=== PATIENT | male | born 1990 | race African-American/Black ===

== ENCOUNTER 2016-05-04 14:30 | Emergency (ER) | payer OTHER ==
[2016-05-04 14:38] VITALS: BP 117/73; PULSE 100; TEMP 98.6; BMI 28.3
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
== END 2016-05-04 15:39 | disposition home or self-care (01) ==
LOC: FER 14:30
DX: J31.0 Chronic rhinitis (principal); I10 Essential (primary) hypertension; F17.210 Nicotine dependence, cigarettes, uncomplicated
CPT/HCPCS: 87070; 87430; 99282-25

== ENCOUNTER 2017-05-08 16:27 | Emergency (ER) | payer OTHER ==
[2017-05-08 17:13] VITALS: BMI 29.5
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
[2017-05-08 18:02] VITALS: BP 142/89; PULSE 98; TEMP 98.2
== END 2017-05-08 18:07 | disposition home or self-care (01) ==
LOC: JER 16:27
DX: F16.10 Hallucinogen abuse, uncomplicated (principal); F17.210 Nicotine dependence, cigarettes, uncomplicated; I10 Essential (primary) hypertension
CPT/HCPCS: 99281-25

== ENCOUNTER 2017-07-21 16:47 | Inpatient (IN) | payer OTHER ==
[2017-07-21 19:54] VITALS: BMI 25.0
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
[2017-07-21] MEDS ORDERED: MAG HYDROX/AL HYDROX/SIMETH 30 ML UNIT-DOSE CUP PO PRN (21:03)
[2017-07-21] MEDS ORDERED: MAGNESIUM CITRATE 300 ML BOTTLE PO PRN (21:03)
[2017-07-21] MEDS ORDERED: P-EPHED 60MG/TRIPROLIDI 2.5MG TABLET PO PRN (21:03)
[2017-07-21] MEDS ORDERED: NICOTINE POLACRILEX 2 MG GUM BUC PRN (21:03)
[2017-07-21] MEDS ORDERED: METHADONE HCL 10 MG TABLET (FOR DETOX USE ONLY) PO ONE ×2 (21:03→23:00)
[2017-07-21] MEDS ORDERED: MAGNESIUM HYDROX 2400MG/30ML ORAL SUSPENSION 30 ML CUP PO PRN (21:03)
[2017-07-21] MEDS ORDERED: MENTHOL/PHENOL 1 EACH UD MM PRN (21:03)
[2017-07-21] MEDS ORDERED: ACETAMINOPHEN 325 MG TABLET (FP) PO PRN (21:15)
[2017-07-21] MEDS ORDERED: guaiFENesin/D-METHORPHAN HB 10 ML UNIT-DOSE CUPS PO PRN (21:16)
[2017-07-21] MEDS ORDERED: chlordiazePOXIDE HCL 25 MG CAPSULE PO PRN (21:16)
[2017-07-21] MEDS ORDERED: IBUPROFEN 400 MG TABLET (FP) PO PRN (21:16)
[2017-07-21] MEDS ORDERED: LOPERAMIDE HCL 2 MG CAPSULE PO PRN (21:16)
[2017-07-21] MEDS ORDERED: MELATONIN 5 MG TABLETS PO PRN (22:00)
[2017-07-21] MEDS: chlordiazePOXIDE HCL 25 MG CAPSULE PO SCH (22:46)
[2017-07-21] MEDS: THIAMINE HCL 100 MG TABLET (FP) PO SCH (22:47)
[2017-07-22] MEDS: chlordiazePOXIDE HCL 25 MG CAPSULE PO SCH ×4 (05:04→22:12)
[2017-07-22] MEDS ORDERED: diphenhydrAMINE HCL 25 MG CAPSULE (FP) PO ONE (05:21)
[2017-07-22 08:07] LABS: URINE APPEARANCE CLEAR; URINE BILIRUBIN NEGATIVE (<2.0 mg/dL); URINE COLOR YELLOW; URINE GLUCOSE (UA) NEGATIVE (NEGATIVE); URINE KETONE TRACE (NEGATIVE); URINE LEUK ESTERASE NEGATIVE (NEGATIVE); URINE NITRITE NEGATIVE (NEGATIVE); URINE PROTEIN NEGATIVE (NEGATIVE)
[2017-07-22] MEDS ORDERED: METHADONE HCL 10 MG TABLET (FOR DETOX USE ONLY) PO SCH (10:00)
[2017-07-22] MEDS: PRENATAL VITAMINS W/ FOLIC ACID TABLET (FP) PO SCH (10:13)
[2017-07-22] MEDS: NICOTINE 14 MG/24 HOURS TOPICAL PATCH TD SCH (10:13)
[2017-07-22 10:52] LABS: CHLORIDE 107 mmol/L (98-107); POTASSIUM 4.1 mmol/L (3.5-5.1); SODIUM 141 mmol/L (136-145)
[2017-07-22 11:01] LABS: HEMOGLOBIN 13.8 GM/dL (11.7-16.9); MCH 30.4 pg (25.7-33.7); MCHC 32.9 g/dl (32.0-35.9); MEAN CELL VOLUME 92.4 fl (80-96); MEAN PLT VOLUME 11.3 fl (7.5-11.1); PLATELET COUNT 115 K/MM3 (134-434); RBC 4.55 M/mm3 (4.00-5.60); RDW 15.9 % (11.9-15.9); WHITE BLOOD COUNT 6.6 K/mm3 (4.0-10.0)
--- NOTE | 2017-07-22 11:02 | PN ---
S CIWA - CIWA Score Nausea/Vomitin Muscle Tremors: 3 Anxiety: 3 Agitation: 3 Paroxysmal Sweats: 3 Orientation: 0-Oriented Tacttile Disturbances: 0-None Auditory Disturbances: 0-None Visual Disturbances: 0-None Headache: 0-None Present CIWA-Ar Total Score: 15 BHS COWS - Scale Resting Pulse: 0= ID 80 or Below Sweatin= Chills/Flushing Restless Observation: 1= Difficult to Sit Still Pupil Size: 0= Normal to Room Light Bone or Joint Aches: 1= Mild Discomfort Runny Nose/ Eye Tearin= Nasal Congestion GI Upset > 30mins: 1= Stomach Cramp Tremor Observation of Outstretched Hands: 2= Slight Tremor Visible Yawning Observation: 1= 1-2x During Session Anxiety or Irritability: 1=Feels Anxious/Irritable Goose Flesh Skin: 0=Smooth Skin COWS Score: 9 S Progress Note (SOAP) Subjective: Shakes Sweats Sleepless Generalized Itchiness Objective: 07/22/17 11:10 A & O x3 noted scratching - no hives, redness No resp distress Vital Signs Temperature 96.2 F L 07/22/17 09:17 Pulse Rate 55 L 07/22/17 09:17 Respiratory Rate 20 07/22/17 09:17 Blood Pressure 114/70 07/22/17 09:17 O2 Sat by Pulse Oximetry (%) Laboratory Last Values Sodium 141 mmol/L (136-145) 07/22/17 07:00 Potassium 4.1 mmol/L (3.5-5.1) 07/22/17 07:00 Chloride 107 mmol/L (98-107) 07/22/17 07:00 Urine Color Yellow 07/22/17 06:30 Urine Appearance Clear 07/22/17 06:30 Urine pH 5.0 (5.0-8.0) 07/22/17 06:30 Ur Specific [place] 1.020 (1.001-1.035) 07/22/17 06:30 Urine Protein Negative (NEGATIVE) 07/22/17 06:30 Urine Glucose (UA) Negative (NEGATIVE) 07/22/17 06:30 Urine Ketones Trace (NEGATIVE) H 07/22/17 06:30 Urine Blood Negative (NEGATIVE) 07/22/17 06:30 Urine Nitrite Negative (NEGATIVE) 07/22/17 06:30 Urine Bilirubin Negative (<2.0 mg/dL) 07/22/17 06:30 Urine Urobilinogen 2.0 mg/dL (0.2-1.0) 07/22/17 06:30 Ur Leukocyte Esterase Negative (NEGATIVE) 07/22/17 06:30 Labs noted, pending other labs Assessment: 07/22/17 11:15 Withdrawal sx Plan: continue detox Monitor itching Benadryl prn for itching
[2017-07-22 11:13] LABS: ALBUMIN 3.5 g/dl (3.4-5.0); ALK PHOS 61 U/L (45-117); ANION GAP 5 (8-16); BILIRUBIN,TOTAL 0.2 mg/dL (0.2-1.0); BLOOD UREA NITROGEN 14 mg/dL (7-18); CALCIUM 8.1 mg/dL (8.5-10.1); CO2 29 mmol/L (21-32); GLUCOSE,RANDOM 83 mg/dL (74-106); SGOT/AST 28 U/L (15-37); SGPT/ALT 19 U/L (12-78)
[2017-07-22] MEDS ORDERED: diphenhydrAMINE HCL 25 MG CAPSULE (FP) PO PRN (11:38)
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
[2017-07-22] MEDS: QUEtiapine FUMARATE 100 MG TABLET (FP) PO SCH (22:12)
[2017-07-22] MEDS: MIRTAZAPINE 15 MG TABLET (FP) PO SCH (22:12)
[2017-07-22] MEDS: THIAMINE HCL 100 MG TABLET (FP) PO SCH (22:12)
--- NOTE | 2017-07-22 23:47 | EKG ---
Test Reason : Blood Pressure : / mmHG Vent. Rate : 077 BPM Atrial Rate : 077 BPM P-R Int : 168 ms QRS Dur : 096 ms QT Int : 368 ms P-R-T Axes : 052 062 052 degrees QTc Int : 416 ms NORMAL SINUS RHYTHM NORMAL ECG NO PREVIOUS ECGS AVAILABLE Confirmed by ISABELA BYNUM, DORIS ([id number]) on 07/22/2017 11:47:09 PM Referred By: Andrea Mendoza Confirmed By:DORIS MAR MD
[2017-07-23] MEDS: chlordiazePOXIDE HCL 25 MG CAPSULE PO SCH ×3 (05:44→17:02)
[2017-07-23] MEDS: NICOTINE 14 MG/24 HOURS TOPICAL PATCH TD SCH (10:18)
[2017-07-23] MEDS: PRENATAL VITAMINS W/ FOLIC ACID TABLET (FP) PO SCH (10:18)
[2017-07-23] MEDS: METHADONE HCL 5 MG TABLET (FOR DETOX USE ONLY) PO SCH (10:18)
--- NOTE | 2017-07-23 13:24 | PN ---
S CIWA - CIWA Score Nausea/Vomitin-No Nausea/No Vomiting Muscle Tremors: 3 Anxiety: 3 Agitation: 3 Paroxysmal Sweats: 3 Orientation: 2-Disoriented Date<2 days Tacttile Disturbances: 2-Mild Itch/Numbness/Burn Auditory Disturbances: 0-None Visual Disturbances: 2-Mild Sensitivity Headache: 0-None Present CIWA-Ar Total Score: 18 BHS COWS - Scale Resting Pulse: 2= OR 101-120 BHS Progress Note (SOAP) Subjective: Body Aches, Interrupted Sleep, Tremors, Fatigue, Sweating. Objective: PATIENT A & O X 2 (UNCERTAIN ABOUT CURRENT DAY / DATE). PATIENT OBSERVED AMBULATING ON UNIT. NO ACUTE DISTRESS. 07/23/17 13:27 Vital Signs Temperature 97.9 F 07/23/17 09:54 Pulse Rate 103 H 07/23/17 09:54 Respiratory Rate 18 07/23/17 09:54 Blood Pressure 115/83 07/23/17 09:54 O2 Sat by Pulse Oximetry (%) Laboratory Tests 07/22/17 07/22/17 07/22/17 06:30 07:00 07:00 WBC 6.6 RBC 4.55 Hgb 13.8 Hct 42.0 MCV 92.4 MCH 30.4 MCHC 32.9 RDW 15.9 Plt Count 115 L D MPV 11.3 H Sodium 141 Potassium 4.1 Chloride 107 Carbon Dioxide 29 Anion Gap 5 L BUN 14 Creatinine 1.0 Creat Clearance w eGFR > 60 Random Glucose 83 Calcium 8.1 L Total Bilirubin 0.2 D AST 28 D ALT 19 D Alkaline Phosphatase 61 Total Protein 6.0 L Albumin 3.5 Urine Color Yellow Urine Appearance Clear Urine pH 5.0 Ur Specific [place] 1.020 Urine Protein Negative Urine Glucose (UA) Negative Urine Ketones Trace H Urine Blood Negative Urine Nitrite Negative Urine Bilirubin Negative Urine Urobilinogen 2.0 Ur Leukocyte Esterase Negative RPR Titer HIV 1&2 Antibody Screen HIV P24 Antigen 07/22/17 07/22/17 07:00 07:00 WBC RBC Hgb Hct MCV MCH MCHC RDW Plt Count MPV Sodium Potassium Chloride Carbon Dioxide Anion Gap BUN Creatinine Creat Clearance w eGFR Random Glucose Calcium Total Bilirubin AST ALT Alkaline Phosphatase Total Protein Albumin Urine Color Urine Appearance Urine pH Ur Specific [place] Urine Protein Urine Glucose (UA) Urine Ketones Urine Blood Urine Nitrite Urine Bilirubin Urine Urobilinogen Ur Leukocyte Esterase RPR Titer Nonreactive HIV 1&2 Antibody Screen Negative HIV P24 Antigen Negative LABS NOTED. Assessment: 07/23/17 13:28 WITHDRAWAL SYMPTOMS. Plan: CONTINUE DETOX.
[2017-07-23] MEDS ORDERED: ONDANSETRON *ODT* 4 MG TABLET SL PRN (14:52)
[2017-07-23] MEDS: QUEtiapine FUMARATE 100 MG TABLET (FP) PO SCH (22:48)
[2017-07-23] MEDS: THIAMINE HCL 100 MG TABLET (FP) PO SCH (22:48)
[2017-07-23] MEDS: MIRTAZAPINE 15 MG TABLET (FP) PO SCH (22:49)
[2017-07-23] MEDS: chlordiazePOXIDE 5 MG CAPSULE PO SCH (22:49)
[2017-07-24] MEDS: chlordiazePOXIDE 5 MG CAPSULE PO SCH ×3 (06:35→17:54)
[2017-07-24] MEDS: NICOTINE 14 MG/24 HOURS TOPICAL PATCH TD SCH (10:05)
[2017-07-24] MEDS: METHADONE HCL 5 MG TABLET (FOR DETOX USE ONLY) PO SCH (10:05)
[2017-07-24] MEDS: PRENATAL VITAMINS W/ FOLIC ACID TABLET (FP) PO SCH (10:05)
--- NOTE | 2017-07-24 11:22 | PN ---
BHS Progress Note (SOAP) Subjective: Body Aches, Stomach Cramping, Fatigue. Objective: PATIENT A & O X 3, OBSERVED AMBULATING ON UNIT. NO ACUTE DISTRESS. 07/24/17 11:18 Vital Signs Temperature 96.7 F L 07/24/17 09:10 Pulse Rate 109 H 07/24/17 09:10 Respiratory Rate 18 07/24/17 09:10 Blood Pressure 122/88 07/24/17 09:10 O2 Sat by Pulse Oximetry (%) Laboratory Tests 07/22/17 07/22/17 07/22/17 06:30 07:00 07:00 WBC 6.6 RBC 4.55 Hgb 13.8 Hct 42.0 MCV 92.4 MCH 30.4 MCHC 32.9 RDW 15.9 Plt Count 115 L D MPV 11.3 H Sodium 141 Potassium 4.1 Chloride 107 Carbon Dioxide 29 Anion Gap 5 L BUN 14 Creatinine 1.0 Creat Clearance w eGFR > 60 Random Glucose 83 Calcium 8.1 L Total Bilirubin 0.2 D AST 28 D ALT 19 D Alkaline Phosphatase 61 Total Protein 6.0 L Albumin 3.5 Urine Color Yellow Urine Appearance Clear Urine pH 5.0 Ur Specific [place] 1.020 Urine Protein Negative Urine Glucose (UA) Negative Urine Ketones Trace H Urine Blood Negative Urine Nitrite Negative Urine Bilirubin Negative Urine Urobilinogen 2.0 Ur Leukocyte Esterase Negative RPR Titer HIV 1&2 Antibody Screen HIV P24 Antigen 07/22/17 07/22/17 07:00 07:00 WBC RBC Hgb Hct MCV MCH MCHC RDW Plt Count MPV Sodium Potassium Chloride Carbon Dioxide Anion Gap BUN Creatinine Creat Clearance w eGFR Random Glucose Calcium Total Bilirubin AST ALT Alkaline Phosphatase Total Protein Albumin Urine Color Urine Appearance Urine pH Ur Specific [place] Urine Protein Urine Glucose (UA) Urine Ketones Urine Blood Urine Nitrite Urine Bilirubin Urine Urobilinogen Ur Leukocyte Esterase RPR Titer Nonreactive HIV 1&2 Antibody Screen Negative HIV P24 Antigen Negative LABS NOTED. Assessment: 07/24/17 11:20 WITHDRAWAL SYMPTOMS. Plan: CONTINUE DETOX. INCREASE DAILY PO FLUID INTAKE. ENCOURAGE AMBULATION.
[2017-07-24] MEDS: THIAMINE HCL 100 MG TABLET (FP) PO SCH (22:13)
[2017-07-24] MEDS: MIRTAZAPINE 15 MG TABLET (FP) PO SCH (22:13)
[2017-07-24] MEDS: QUEtiapine FUMARATE 100 MG TABLET (FP) PO SCH (22:13)
[2017-07-24] MEDS: chlordiazePOXIDE HCL 10 MG CAPSULE PO SCH (22:13)
[2017-07-25] MEDS: chlordiazePOXIDE HCL 10 MG CAPSULE PO SCH ×2 (06:18→10:10)
[2017-07-25] MEDS ORDERED: METHADONE HCL 10 MG TABLET (FOR DETOX USE ONLY) PO SCH (10:00)
[2017-07-25] MEDS: PRENATAL VITAMINS W/ FOLIC ACID TABLET (FP) PO SCH (10:08)
[2017-07-25] MEDS: NICOTINE 14 MG/24 HOURS TOPICAL PATCH TD SCH (10:09)
[2017-07-25] MEDS ORDERED: ALBUTEROL SO4 18 GM HFA INHALER IH PRN (11:00)
[2017-07-25] MEDS ORDERED: ALBUTEROL SO4 18 GM HFA INHALER IH ONE (11:07)
[2017-07-25 13:09] VITALS: BP 113/73; PULSE 102
[2017-07-25 14:04] VITALS: TEMP 96.6
--- NOTE | 2017-07-25 14:50 | PN ---
BHS Progress Note (SOAP) Subjective: Patient denies current Detox symptoms and reports that he feels well overall. Objective: PATIENT A & O X 3, OBSERVED AMBULATING ON UNIT. NO ACUTE DISTRESS. 07/25/17 14:48 Vital Signs Temperature 96.6 F L 07/25/17 14:03 Pulse Rate 102 H 07/25/17 13:09 Respiratory Rate 20 07/25/17 13:09 Blood Pressure 113/73 07/25/17 13:09 O2 Sat by Pulse Oximetry (%) Laboratory Tests 07/22/17 07/22/17 07/22/17 06:30 07:00 07:00 WBC 6.6 RBC 4.55 Hgb 13.8 Hct 42.0 MCV 92.4 MCH 30.4 MCHC 32.9 RDW 15.9 Plt Count 115 L D MPV 11.3 H Sodium 141 Potassium 4.1 Chloride 107 Carbon Dioxide 29 Anion Gap 5 L BUN 14 Creatinine 1.0 Creat Clearance w eGFR > 60 Random Glucose 83 Calcium 8.1 L Total Bilirubin 0.2 D AST 28 D ALT 19 D Alkaline Phosphatase 61 Total Protein 6.0 L Albumin 3.5 Urine Color Yellow Urine Appearance Clear Urine pH 5.0 Ur Specific [place] 1.020 Urine Protein Negative Urine Glucose (UA) Negative Urine Ketones Trace H Urine Blood Negative Urine Nitrite Negative Urine Bilirubin Negative Urine Urobilinogen 2.0 Ur Leukocyte Esterase Negative RPR Titer HIV 1&2 Antibody Screen HIV P24 Antigen 07/22/17 07/22/17 07:00 07:00 WBC RBC Hgb Hct MCV MCH MCHC RDW Plt Count MPV Sodium Potassium Chloride Carbon Dioxide Anion Gap BUN Creatinine Creat Clearance w eGFR Random Glucose Calcium Total Bilirubin AST ALT Alkaline Phosphatase Total Protein Albumin Urine Color Urine Appearance Urine pH Ur Specific [place] Urine Protein Urine Glucose (UA) Urine Ketones Urine Blood Urine Nitrite Urine Bilirubin Urine Urobilinogen Ur Leukocyte Esterase RPR Titer Nonreactive HIV 1&2 Antibody Screen Negative HIV P24 Antigen Negative LABS NOTED. Assessment: 07/25/17 14:49 COMPLETION OF DETOX REGIMEN. Plan: PATIENT SCHEDULED FOR DISCHARGE FROM DETOX UNIT TODAY.
--- NOTE | 2017-07-25 14:53 | DS ---
[facility] Detox Discharge Summary Admission Date: 07/21/17 Discharge Date: 07/25/17 - History Present History: Alcohol Dependence, Cannabis Dependence, Opioid Dependence, Pcp Dependence Additional Comments: PATIENT REPORTS THAT HE FEELS WELL OVERALL AT TIME OF DISCHARGE FROM DETOX UNIT. PATIENT GOING TO [facility] ([place]) FOR AFTERCARE. Pertinent Past History: HTN, Depression, Bipolar disorder, Schizoaffective Disorder, Nicotine Dependence , PTSD, Insomnia. - Physical Exam Results Vital Signs: Vital Signs Temperature 96.6 F L 07/25/17 14:03 Pulse Rate 102 H 07/25/17 13:09 Respiratory Rate 20 07/25/17 13:09 Blood Pressure 113/73 07/25/17 13:09 O2 Sat by Pulse Oximetry (%) Pertinent Admission Physical Exam Findings: WITHDRAWAL SYMPTOMS. Laboratory Tests 07/22/17 07/22/17 07/22/17 06:30 07:00 07:00 WBC 6.6 RBC 4.55 Hgb 13.8 Hct 42.0 MCV 92.4 MCH 30.4 MCHC 32.9 RDW 15.9 Plt Count 115 L D MPV 11.3 H Sodium 141 Potassium 4.1 Chloride 107 Carbon Dioxide 29 Anion Gap 5 L BUN 14 Creatinine 1.0 Creat Clearance w eGFR > 60 Random Glucose 83 Calcium 8.1 L Total Bilirubin 0.2 D AST 28 D ALT 19 D Alkaline Phosphatase 61 Total Protein 6.0 L Albumin 3.5 Urine Color Yellow Urine Appearance Clear Urine pH 5.0 Ur Specific [place] 1.020 Urine Protein Negative Urine Glucose (UA) Negative Urine Ketones Trace H Urine Blood Negative Urine Nitrite Negative Urine Bilirubin Negative Urine Urobilinogen 2.0 Ur Leukocyte Esterase Negative RPR Titer HIV 1&2 Antibody Screen HIV P24 Antigen 07/22/17 07/22/17 07:00 07:00 WBC RBC Hgb Hct MCV MCH MCHC RDW Plt Count MPV Sodium Potassium Chloride Carbon Dioxide Anion Gap BUN Creatinine Creat Clearance w eGFR Random Glucose Calcium Total Bilirubin AST ALT Alkaline Phosphatase Total Protein Albumin Urine Color Urine Appearance Urine pH Ur Specific [place] Urine Protein Urine Glucose (UA) Urine Ketones Urine Blood Urine Nitrite Urine Bilirubin Urine Urobilinogen Ur Leukocyte Esterase RPR Titer Nonreactive HIV 1&2 Antibody Screen Negative HIV P24 Antigen Negative LABS NOTED. - Treatment Hospital Course: Detox Protocol Followed, Detoxed Safely, Responded well, Discharged Condition Good, Rehab Referral Accepted Patient has Accepted a Rehab Referral to: [facility] ([place], [place] . - Medication Discharge Medications: Ambulatory Orders Quetiapine Fumarate [Seroquel] 100 tab PO DAILY 05/04/16 Mirtazapine [Remeron -] 15 mg PO HS #30 tablet 07/24/17 Quetiapine Fumarate [Seroquel] 100 mg PO HS #30 tablet 07/24/17 Albuterol Sulfate Inhaler - [Ventolin HFA Inhaler -] 2 puff IH Q4H PRN 07/25/17 - Diagnosis (1) Alcohol dependence with uncomplicated withdrawal Current Visit: Yes Status: Acute (2) Nicotine dependence Current Visit: Yes Status: Acute Qualifiers: Nicotine product type: cigarettes Substance use status: uncomplicated Qualified Code(s): F17.210 - Nicotine dependence, cigarettes, uncomplicated (3) Opioid dependence with withdrawal Current Visit: Yes Status: Acute (4) PCP dependence Current Visit: Yes Status: Acute (5) HTN (hypertension) Current Visit: Yes Status: Chronic Qualifiers: Hypertension type: essential hypertension Qualified Code(s): I10 - Essential (primary) hypertension (6) Depression Current Visit: Yes Status: Chronic Qualifiers: Depression Type: unspecified Qualified Code(s): F32.9 - Major depressive disorder, single episode, unspecified (7) Cannabis dependence Current Visit: Yes Status: Acute (8) Insomnia Current Visit: Yes Status: Acute (9) PTSD (post-traumatic stress disorder) Current Visit: Yes Status: Chronic (10) Schizoaffective disorder Current Visit: Yes Status: Suspected Qualifiers: Schizoaffective disorder type: unspecified Qualified Code(s): F25.9 - Schizoaffective disorder, unspecified - AMA Did Patient Leave Against Medical Advice: No
[2017-07-26] MEDS ORDERED: METHADONE HCL 5 MG TABLET (FOR DETOX USE ONLY) PO SCH (06:00)
== END 2017-07-25 14:50 | disposition other institution (70) | DRG 773 ==
LOC: YASAS 16:47 → Y3N 19:43
PROVIDERS: ADMIT Internal Medicine; ATTEND Internal Medicine
PROC: HZ2ZZZZ Detoxification Services for Substance Abuse Treatment (ICD-10-PCS; principal; 2017-07-21)
DX: F11.23 Opioid dependence with withdrawal (principal); F10.230 Alcohol dependence with withdrawal, uncomplicated; F12.20 Cannabis dependence, uncomplicated; F16.20 Hallucinogen dependence, uncomplicated; F17.210 Nicotine dependence, cigarettes, uncomplicated; F43.10 Post-traumatic stress disorder, unspecified; F25.9 Schizoaffective disorder, unspecified; F31.9 Bipolar disorder, unspecified; G47.00 Insomnia, unspecified; I10 Essential (primary) hypertension; Z91.5 Personal history of self-harm
CPT/HCPCS: 36415; 80053; 81003; 85027; 86593; 87389; 93005; 93010

== ENCOUNTER 2017-07-25 14:39 | Inpatient (IN) | payer OTHER ==
[2017-07-25] MEDS ORDERED: MAGNESIUM HYDROX 2400MG/30ML ORAL SUSPENSION 30 ML CUP PO PRN (14:55)
[2017-07-25] MEDS ORDERED: P-EPHED 60MG/TRIPROLIDI 2.5MG TABLET PO PRN (14:55)
[2017-07-25] MEDS ORDERED: LOPERAMIDE HCL 2 MG CAPSULE PO PRN (14:55)
[2017-07-25] MEDS ORDERED: MAG HYDROX/AL HYDROX/SIMETH 30 ML UNIT-DOSE CUP PO PRN (14:55)
[2017-07-25] MEDS ORDERED: MAGNESIUM CITRATE 300 ML BOTTLE PO PRN (14:55)
[2017-07-25] MEDS ORDERED: NICOTINE POLACRILEX 2 MG GUM BUC PRN (14:55)
[2017-07-25] MEDS ORDERED: MENTHOL/PHENOL 1 EACH UD MM PRN (14:55)
[2017-07-25] MEDS ORDERED: guaiFENesin/D-METHORPHAN HB 10 ML UNIT-DOSE CUPS PO PRN (14:55)
--- NOTE | 2017-07-25 14:58 | HP ---
[facility] Rehab Assess/Revision - Admission History Admitted to Rehab from: [facility] Date of Admission to Rehab: 07/25/2017 - Vital signs Vital Signs: NOTED; STABLE. - Findings Detox History & Physical reviewed: Yes Concur with findings: Yes Comments/Additional Findings: PATIENT'S MEDICAL / MEDICATION HISTORY REVIEWED PRIOR TO DISCHARGE FROM DETOX UNIT. PATIENT WAS DISCHARGED FROM DETOX UNIT TO BE TAKEN TO REHAB UNIT IN STABLE MEDICAL CONDITION. Inpatient Rehab Admission - Initial Determination Are CD services needed?: Yes Free of communicable disease: Yes Not in need of hospitalization: Yes - Rehab Admission Criteria Previous failed treatment: Yes Comorbidities: Yes Patient is meeting Inpatient Rehab admission criteria:: Yes
[2017-07-25] MEDS: THIAMINE HCL 100 MG TABLET (FP) PO SCH (21:20)
[2017-07-25] MEDS: ALBUTEROL SO4 18 GM HFA INHALER IH PRN (21:22)
[2017-07-25] MEDS ORDERED: MELATONIN 5 MG TABLETS PO PRN (22:00)
[2017-07-26] MEDS: PRENATAL VITAMINS W/ FOLIC ACID TABLET (FP) PO SCH (10:19)
[2017-07-26] MEDS: NICOTINE 14 MG/24 HOURS TOPICAL PATCH TD SCH (10:20)
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
--- NOTE | 2017-07-26 14:41 | PN ---
BHS Progress Note Note: Notified by RN patient c/o frequency and burning upon urination. UA ordered. Oral fluids maintained. Continue to monitor clinically.
[2017-07-26 16:26] LABS: URINE APPEARANCE CLEAR; URINE BILIRUBIN NEGATIVE (<2.0 mg/dL); URINE COLOR YELLOW; URINE GLUCOSE (UA) NEGATIVE (NEGATIVE); URINE KETONE NEGATIVE (NEGATIVE); URINE LEUK ESTERASE NEGATIVE (NEGATIVE); URINE NITRITE NEGATIVE (NEGATIVE); URINE PROTEIN NEGATIVE (NEGATIVE)
[2017-07-26] MEDS: THIAMINE HCL 100 MG TABLET (FP) PO SCH (21:30)
[2017-07-26] MEDS: MIRTAZAPINE 15 MG TABLET (FP) PO SCH (21:30)
[2017-07-26] MEDS: QUEtiapine FUMARATE 100 MG TABLET (FP) PO SCH (21:30)
[2017-07-26] MEDS: IBUPROFEN 400 MG TABLET (FP) PO PRN (22:56)
[2017-07-27] MEDS: NICOTINE 14 MG/24 HOURS TOPICAL PATCH TD SCH (10:39)
[2017-07-27] MEDS: PRENATAL VITAMINS W/ FOLIC ACID TABLET (FP) PO SCH (10:39)
[2017-07-27] MEDS: ALBUTEROL SO4 18 GM HFA INHALER IH PRN (18:49)
[2017-07-27] MEDS: THIAMINE HCL 100 MG TABLET (FP) PO SCH (21:38)
[2017-07-27] MEDS: QUEtiapine FUMARATE 100 MG TABLET (FP) PO SCH (21:38)
[2017-07-27] MEDS: MIRTAZAPINE 15 MG TABLET (FP) PO SCH (21:38)
[2017-07-27] MEDS: IBUPROFEN 400 MG TABLET (FP) PO PRN (21:40)
[2017-07-28] MEDS: NICOTINE 14 MG/24 HOURS TOPICAL PATCH TD SCH (10:10)
[2017-07-28] MEDS: PRENATAL VITAMINS W/ FOLIC ACID TABLET (FP) PO SCH (10:10)
[2017-07-28] MEDS: ALBUTEROL SO4 18 GM HFA INHALER IH PRN (14:35)
[2017-07-28] MEDS: THIAMINE HCL 100 MG TABLET (FP) PO SCH (21:46)
[2017-07-28] MEDS: QUEtiapine FUMARATE 100 MG TABLET (FP) PO SCH (21:46)
[2017-07-28] MEDS: MIRTAZAPINE 15 MG TABLET (FP) PO SCH (21:46)
[2017-07-28] MEDS: IBUPROFEN 400 MG TABLET (FP) PO PRN (21:47)
[2017-07-29] MEDS: PRENATAL VITAMINS W/ FOLIC ACID TABLET (FP) PO SCH (10:05)
[2017-07-29] MEDS: NICOTINE 14 MG/24 HOURS TOPICAL PATCH TD SCH (10:05)
[2017-07-29] MEDS: MIRTAZAPINE 15 MG TABLET (FP) PO SCH (21:38)
[2017-07-29] MEDS: THIAMINE HCL 100 MG TABLET (FP) PO SCH (21:38)
[2017-07-29] MEDS: IBUPROFEN 400 MG TABLET (FP) PO PRN (21:38)
[2017-07-29] MEDS: QUEtiapine FUMARATE 100 MG TABLET (FP) PO SCH (21:38)
[2017-07-30] MEDS: PRENATAL VITAMINS W/ FOLIC ACID TABLET (FP) PO SCH (10:33)
[2017-07-30] MEDS: NICOTINE 14 MG/24 HOURS TOPICAL PATCH TD SCH (10:33)
[2017-07-30] MEDS: ACETAMINOPHEN 325 MG TABLET (FP) PO PRN (12:05)
[2017-07-30] MEDS: QUEtiapine FUMARATE 100 MG TABLET (FP) PO SCH (21:47)
[2017-07-30] MEDS: MIRTAZAPINE 15 MG TABLET (FP) PO SCH (21:48)
[2017-07-30] MEDS: THIAMINE HCL 100 MG TABLET (FP) PO SCH (21:48)
[2017-07-30] MEDS: IBUPROFEN 400 MG TABLET (FP) PO PRN (21:49)
[2017-07-31] MEDS: NICOTINE 14 MG/24 HOURS TOPICAL PATCH TD SCH (10:24)
[2017-07-31] MEDS: PRENATAL VITAMINS W/ FOLIC ACID TABLET (FP) PO SCH (10:24)
[2017-07-31] MEDS: IBUPROFEN 400 MG TABLET (FP) PO PRN ×2 (14:55→21:43)
--- NOTE | 2017-07-31 17:19 | PN ---
S Progress Note Note: Patient c/o of sore throat and thick white plaques on his tongue x 1 week. Denies any recent antibiotic use. Denies CP, SOB, vertigo. Vital Signs Temperature 97.6 F 07/30/17 06:35 Pulse Rate 85 07/30/17 06:35 Respiratory Rate 18 07/31/17 07:13 Blood Pressure 117/69 07/30/17 06:35 O2 Sat by Pulse Oximetry (%) Laboratory Last Values Urine Color Yellow 07/26/17 15:15 Urine Appearance Clear 07/26/17 15:15 Urine pH 8.0 (5.0-8.0) D 07/26/17 15:15 Ur Specific [place] 1.019 (1.001-1.035) 07/26/17 15:15 Urine Protein Negative (NEGATIVE) 07/26/17 15:15 Urine Glucose (UA) Negative (NEGATIVE) 07/26/17 15:15 Urine Ketones Negative (NEGATIVE) 07/26/17 15:15 Urine Blood Negative (NEGATIVE) 07/26/17 15:15 Urine Nitrite Negative (NEGATIVE) 07/26/17 15:15 Urine Bilirubin Negative (<2.0 mg/dL) 07/26/17 15:15 Urine Urobilinogen 2.0 mg/dL (0.2-1.0) 07/26/17 15:15 Ur Leukocyte Esterase Negative (NEGATIVE) 07/26/17 15:15 A/P patient AOx3, no distress + pharyngeal erythema + thick white plaques on tongue no adventitious breath sounds skin intact, no erythema - oral thrush Plan: nystatin oral suspension wash cepostat for relief Acetaminophen PRN
[2017-07-31] MEDS: NYSTATIN 500,000 UNITS/5 ML SUSPENSION PO SCH ×2 (19:42→23:15)
[2017-07-31] MEDS: THIAMINE HCL 100 MG TABLET (FP) PO SCH (21:42)
[2017-07-31] MEDS: MIRTAZAPINE 15 MG TABLET (FP) PO SCH (21:42)
[2017-07-31] MEDS: QUEtiapine FUMARATE 100 MG TABLET (FP) PO SCH (21:42)
[2017-08-01 06:44] VITALS: BP 125/72; PULSE 83; TEMP 97.7
[2017-08-01] MEDS: NYSTATIN 500,000 UNITS/5 ML SUSPENSION PO SCH ×2 (06:49→13:00)
[2017-08-01] MEDS: ACETAMINOPHEN 325 MG TABLET (FP) PO PRN (10:25)
[2017-08-01] MEDS: PRENATAL VITAMINS W/ FOLIC ACID TABLET (FP) PO SCH (10:26)
[2017-08-01] MEDS: NICOTINE 14 MG/24 HOURS TOPICAL PATCH TD SCH (10:26)
--- NOTE | 2017-08-01 15:03 | PN ---
Psychiatric Progress Note Vital Signs: Vital Signs Period Temp Pulse Resp BP Sys/Stewart Pulse Ox Last 24 Hr 97.7 F 83 18-18 125/72 Date of Session: 08/01/17 Chief Complaint:: discharge viait HPI: patient has addressed alcohol, nicotine dependence comorbid schizoaffective disorder, PTSD. ROS: wnl Current Medications: Active Medications Generic Name Dose Route Start Last Admin Trade Name Freq PRN Reason Stop Dose Admin Acetaminophen 650 mg 07/25/17 14:55 08/01/17 10:25 Tylenol - PO 650 mg Q4H PRN Administration FEVER Al Hydroxide/Mg Hydroxide 30 ml 07/25/17 14:55 07/30/17 10:34 Mylanta Oral Suspension - PO 30 ml Q6H PRN Administration DYSPEPSIA Albuterol Sulfate 2 puff 07/25/17 14:56 07/28/17 14:35 Ventolin Hfa Inhaler - IH 2 puff Q4H PRN Administration SHORT OF BREATH/WHEEZING Eucalyptus/Menthol/Phenol/Sorbitol 1 each 07/25/17 14:55 Cepastat Lozenge - MM Q4H PRN SORE THROAT Guaifenesin 10 ml 07/25/17 14:55 Robitussin Dm - PO Q6H PRN COUGH Ibuprofen 400 mg 07/25/17 14:55 07/31/17 21:43 Motrin - PO 400 mg Q6H PRN Administration Pain Level 4-6 Loperamide HCl 4 mg 07/25/17 14:55 Imodium - PO Q6H PRN DIARRHEA Magnesium Citrate 300 ml 07/25/17 14:55 Citroma - PO Q48H PRN CONSTIPATION Magnesium Hydroxide 30 ml 07/25/17 14:55 Milk Of Magnesia - PO DAILY PRN CONSTIPATION Melatonin 5 mg 07/25/17 22:00 07/25/17 21:23 Melatonin PO 5 mg HS PRN Administration INSOMNIA Mirtazapine 15 mg 07/26/17 22:00 07/31/17 21:42 Remeron - PO 15 mg HS RICHARD Administration Nicotine 14 mg 07/26/17 10:00 08/01/17 10:26 Nicoderm Patch - TD Not Given DAILY RICHARD Nicotine Polacrilex 2 mg 07/25/17 14:55 Nicorette Gum - BUC Q2H PRN NICOTINE REPLACEMENT RX Nystatin 500,000 units 07/31/17 18:00 08/01/17 13:00 Nystatin Oral Suspension - PO 500,000 units Q6HPO RIHCARD Administration Multivit/Folic Acid/Iron 1 tab 07/26/17 10:00 08/01/17 10:26 Vitamins (Sjr) - PO 1 tab DAILY RICHARD Administration Pseudoephedrine/Triprolidine 1 combo 07/25/17 14:55 Actifed - PO TID PRN NASAL CONGESTION Quetiapine Fumarate 100 mg 07/26/17 22:00 07/31/17 21:42 Seroquel - PO 100 mg HS RICHARD Administration Thiamine HCl 100 mg 07/25/17 22:00 07/31/17 21:42 Vitamin B1 - PO 100 mg HS RICHARD Administration Current Side Effect: No Lab tests ordered: No Lab tests reviewed: Yes Provider note:: patient has completed today his treatment and met his goals, will continue to address his issuess at [facility] opd. Patient was provided with a r for his current medications, stable for d/c today. Total face to face time:: 15 Mental Status Exam - Mental Status Exam Alert and Oriented to: Time, Place, Person Cognitive Function: Good Patient Appearance: Well Groomed Mood: Hopeful Affect: Appropriate, Mood Congruent Patient Behavior: Appropriate, Cooperative Speech Pattern: Clear, Appropriate Voice Loudness: Normal Thought Process: Intact, Goal Oriented Thought Disorder: Not Present Hallucinations: Denies Suicidal Ideation: Denies Homicidal Ideation: Denies Insight/Judgement: Fair Sleep: Fair Appetite: Fair Muscle strength/Tone: Normal Gait/Station: Normal Psychiatric Treatment Plan - Problem List (1) Opioid dependence Current Visit: Yes (2) Alcohol dependence Current Visit: No (3) Nicotine dependence, cigarettes, uncomplicated Current Visit: No (4) Schizoaffective disorder Current Visit: No Qualifiers: Schizoaffective disorder type: unspecified Qualified Code(s): F25.9 - Schizoaffective disorder, unspecified (5) PTSD (post-traumatic stress disorder) Current Visit: No
== END 2017-08-01 15:50 | disposition home or self-care (01) | DRG 772 ==
LOC: YASAS 14:39 → Y5N 14:40
PROVIDERS: ADMIT Psychiatry & Neurology Psychiatry; ATTEND Psychiatry & Neurology Psychiatry
PROC: HZ42ZZZ Group Counseling for Substance Abuse Treatment, Cognitive-Behavioral (ICD-10-PCS; principal; 2017-07-25)
DX: F11.20 Opioid dependence, uncomplicated (principal); F10.20 Alcohol dependence, uncomplicated; F17.210 Nicotine dependence, cigarettes, uncomplicated; F25.9 Schizoaffective disorder, unspecified; F43.10 Post-traumatic stress disorder, unspecified; B37.0 Candidal stomatitis; R35.0 Frequency of micturition; R30.0 Dysuria; I10 Essential (primary) hypertension
CPT/HCPCS: 81003

== ENCOUNTER 2023-01-20 10:57 | Inpatient (IN) | payer OTHER ==
[2023-01-20 11:29] VITALS: BMI 29.5
[2023-01-20] MEDS ORDERED: DICYCLOMINE HCL 10 MG CAPSULE PO PRN (12:35)
[2023-01-20] MEDS ORDERED: BENZOCAINE/MENTHOL (CHLORASEPTIC ) LOZENGE MM PRN (12:35)
[2023-01-20] MEDS ORDERED: MAG HYDROX/AL HYDROX/SIMETH 30 ML UNIT-DOSE CUP PO PRN (12:35)
[2023-01-20] MEDS ORDERED: MAGNESIUM HYDROX 2400MG/30ML ORAL SUSPENSION 30 ML CUP PO PRN (12:35)
[2023-01-20] MEDS ORDERED: BISMUTH SUBSALICYLATE 524 MG/30 ML PO PRN (12:35)
[2023-01-20] MEDS ORDERED: guaiFENesin 600 MG TABLET.ER (FP) PO PRN (12:35)
[2023-01-20] MEDS ORDERED: LOPERAMIDE HCL 2 MG CAPSULE PO PRN (12:35)
[2023-01-20] MEDS ORDERED: BISACODYL 5 MG TABLET.DR (FP) PO PRN (12:35)
[2023-01-20] MEDS ORDERED: NALOXONE HCL (KLOXXADO) 8 MG SPRAY NS PRN (12:35)
[2023-01-20] MEDS ORDERED: ONDANSETRON *ODT* 4 MG TABLET SL PRN (12:35)
[2023-01-20] MEDS ORDERED: POLYETHYLENE GLYCOL (HEALTHYLAX) 3350 17 GM PACKET PO PRN (12:35)
[2023-01-20] MEDS ORDERED: BENZONATATE 200 MG CAPSULE PO PRN (12:35)
[2023-01-20] MEDS ORDERED: NALOXONE HCL 0.4 MG/ML VIAL IM PRN (12:35)
[2023-01-20] MEDS ORDERED: ACETAMINOPHEN 325 MG TABLET (FP) PO PRN (12:35)
[2023-01-20] MEDS ORDERED: chlordiazePOXIDE HCL 25 MG CAPSULE PO PRN (12:35)
[2023-01-20] MEDS ORDERED: ALBUTEROL SO4 HFA INHALER IH PRN (13:59)
[2023-01-20] MEDS: amLODIPine BESYLATE 5 MG TABLET (FP) PO SCH (14:32)
[2023-01-20] MEDS: chlordiazePOXIDE HCL 25 MG CAPSULE PO SCH ×2 (17:47→22:30)
[2023-01-20] MEDS: MELATONIN 5 MG TABLETS PO SCH (22:30)
[2023-01-20] MEDS: THIAMINE HCL 100 MG TABLET (FP) PO SCH (22:30)
[2023-01-20] MEDS: IBUPROFEN 600 MG TABLET (FP) PO PRN (22:43)
[2023-01-21] MEDS: chlordiazePOXIDE HCL 25 MG CAPSULE PO SCH ×2 (05:55→10:47)
[2023-01-21] MEDS: PRENATAL VITAMINS W/ FOLIC ACID TABLET (FP) PO SCH (10:45)
[2023-01-21] MEDS: amLODIPine BESYLATE 5 MG TABLET (FP) PO SCH (10:46)
[2023-01-21 10:48] LABS: CHLORIDE 100 mmol/L (98-107); POTASSIUM 4.4 mmol/L (3.5-5.1); SODIUM 139 mmol/L (136-145)
[2023-01-21 10:49] LABS: HEMATOCRIT 44.6 % (35.4-49); HEMOGLOBIN 14.9 GM/dL (11.7-16.9); MCH 30.8 pg (25.7-33.7); MCHC 33.3 g/dl (32.0-35.9); MEAN CELL VOLUME 92.5 fl (80-96); MEAN PLT VOLUME 10.2 fl (7.5-11.1); PLATELET COUNT 187 10^3/uL (134-434); RBC 4.82 M/mm3 (4.00-5.60); RDW 14.6 % (11.9-15.9); WHITE BLOOD COUNT 6.6 K/mm3 (4.0-10.0)
[2023-01-21 10:53] LABS: CALCIUM 9.2 mg/dL (8.5-10.1)
[2023-01-21 10:54] LABS: ALBUMIN 3.9 g/dl (3.4-5.0); ANION GAP 6 mmol/L (4-13); BLOOD UREA NITROGEN 12.8 mg/dL (7-18); CO2 33 mmol/L (21-32); GLUCOSE,RANDOM 93 mg/dL (74-106)
[2023-01-21 10:55] LABS: CREATININE 1.1 mg/dL (0.55-1.3); SGOT/AST 105 U/L (15-37)
[2023-01-21 10:57] LABS: BILIRUBIN,TOTAL 0.9 mg/dL (0.2-1); SGPT/ALT 70 U/L (13-61); TOT PROT 7.2 g/dl (6.4-8.2)
[2023-01-21 10:59] LABS: ALK PHOS 59 U/L (45-117)
[2023-01-21] MEDS ORDERED: LORazepam 1 MG TABLET PO PRN (11:08)
[2023-01-21] MEDS: LORazepam 2 MG TABLET PO SCH ×2 (18:00→22:37)
[2023-01-21] MEDS: IBUPROFEN 400 MG TABLET (FP) PO PRN (18:02)
[2023-01-21] MEDS ORDERED: QUEtiapine FUMARATE 50 MG TABLET PO ONE (22:00)
[2023-01-21] MEDS: METHOCARBAMOL 500 MG TABLET PO PRN (22:37)
[2023-01-21] MEDS: THIAMINE HCL 100 MG TABLET (FP) PO SCH (22:37)
[2023-01-21] MEDS: MELATONIN 5 MG TABLETS PO SCH (22:38)
[2023-01-21 23:06] LABS: EPI CELLS >36 /uL (0-25.1); HYALINE CASTS 14 /uL (0-3.1); URINE APPEARANCE TURBID; URINE BACTERIA 39 /uL (0-1359); URINE BILIRUBIN NEGATIVE (NEGATIVE); URINE COLOR DK YELLOW; URINE GLUCOSE (UA) NEGATIVE (NEGATIVE); URINE KETONE TRACE (NEGATIVE); URINE LEUK ESTERASE 1+ (NEGATIVE); URINE NITRITE NEGATIVE (NEGATIVE); URINE PROTEIN NEGATIVE (NEGATIVE); URINE RBC 3 /uL (0-23.9); URINE WBC 110 /uL (0-25.8)
[2023-01-22] MEDS ORDERED: chlordiazePOXIDE HCL 25 MG CAPSULE PO SCH (05:00)
[2023-01-22] MEDS: LORazepam 2 MG TABLET PO SCH ×4 (05:48→22:33)
[2023-01-22] MEDS: amLODIPine BESYLATE 5 MG TABLET (FP) PO SCH (10:23)
[2023-01-22] MEDS: PRENATAL VITAMINS W/ FOLIC ACID TABLET (FP) PO SCH (10:23)
[2023-01-22] MEDS: IBUPROFEN 600 MG TABLET (FP) PO PRN (17:30)
[2023-01-22] MEDS: THIAMINE HCL 100 MG TABLET (FP) PO SCH (22:33)
[2023-01-22] MEDS: MELATONIN 5 MG TABLETS PO SCH (22:33)
[2023-01-22] MEDS: METHOCARBAMOL 500 MG TABLET PO PRN (22:48)
[2023-01-23] MEDS ORDERED: chlordiazePOXIDE HCL 10 MG CAPSULE PO PRN
[2023-01-23] MEDS ORDERED: chlordiazePOXIDE HCL 10 MG CAPSULE PO SCH (05:00)
[2023-01-23] MEDS: LORazepam 1 MG TABLET PO SCH ×4 (05:49→22:24)
[2023-01-23] MEDS: IBUPROFEN 600 MG TABLET (FP) PO PRN (05:55)
[2023-01-23] MEDS: PRENATAL VITAMINS W/ FOLIC ACID TABLET (FP) PO SCH (10:20)
[2023-01-23] MEDS: amLODIPine BESYLATE 5 MG TABLET (FP) PO SCH (10:20)
[2023-01-23] MEDS: hydrOXYzine PAMOATE 25 MG CAPSULE (FP) PO PRN ×2 (13:02→22:24)
[2023-01-23] MEDS: DOXYCYCLINE HYCLATE 100 MG TABLET PO SCH (17:18)
[2023-01-23] MEDS: IBUPROFEN 400 MG TABLET (FP) PO PRN (17:25)
[2023-01-23] MEDS: METHOCARBAMOL 500 MG TABLET PO PRN (22:24)
[2023-01-23] MEDS: MELATONIN 5 MG TABLETS PO SCH (22:24)
[2023-01-23] MEDS: THIAMINE HCL 100 MG TABLET (FP) PO SCH (22:25)
[2023-01-24] MEDS ORDERED: LORazepam 0.5 MG TABLET PO PRN
[2023-01-24] MEDS ORDERED: chlordiazePOXIDE HCL 10 MG CAPSULE PO SCH (05:00)
[2023-01-24] MEDS: LORazepam 0.5 MG TABLET PO SCH ×2 (05:39→10:49)
[2023-01-24 09:27] VITALS: BP 133/79; PULSE 75; RESP 16; TEMP 97.1
[2023-01-24] MEDS: PRENATAL VITAMINS W/ FOLIC ACID TABLET (FP) PO SCH (10:17)
[2023-01-24] MEDS: DOXYCYCLINE HYCLATE 100 MG TABLET PO SCH (10:17)
[2023-01-24] MEDS: amLODIPine BESYLATE 5 MG TABLET (FP) PO SCH (10:17)
[2023-01-25] MEDS ORDERED: LORazepam 0.5 MG TABLET PO ONE (05:00)
[2023-01-25] MEDS ORDERED: chlordiazePOXIDE HCL 10 MG CAPSULE PO ONE (05:00)
== END 2023-01-24 12:00 | disposition home or self-care (01) | DRG 775 ==
LOC: YASAS 10:57 → Y6N 12:59
PROVIDERS: ADMIT Allergy & Immunology; ATTEND Surgery
PROC: HZ2ZZZZ Detoxification Services for Substance Abuse Treatment (ICD-10-PCS; principal; 2023-01-20)
DX: F10.230 Alcohol dependence with withdrawal, uncomplicated (principal); F16.20 Hallucinogen dependence, uncomplicated; F12.20 Cannabis dependence, uncomplicated; F17.210 Nicotine dependence, cigarettes, uncomplicated; F19.282 Other psychoactive substance dependence with psychoactive substance-induced sleep disorder; F19.24 Other psychoactive substance dependence with psychoactive substance-induced mood disorder; F25.9 Schizoaffective disorder, unspecified; F43.20 Adjustment disorder, unspecified; J45.20 Mild intermittent asthma, uncomplicated; I10 Essential (primary) hypertension; N39.0 Urinary tract infection, site not specified; M79.641 Pain in right hand; Z91.51 Personal history of suicidal behavior
CPT/HCPCS: 36415; 73130-TC-RT-FY; 80053; 80307; 81003; 84450; 85027; 86780; 87635; 87811; 93005; 93010; 99283-25

== ENCOUNTER 2023-01-23 18:34 | Emergency (ER) | payer OTHER ==
[2023-01-23 18:43] VITALS: BP 120/78; PULSE 113; RESP 18; TEMP 98.6; BMI 32.1
== END 2023-01-23 20:59 | disposition home or self-care (01) ==
LOC: JERFT 18:34
DX: M79.641 Pain in right hand (principal); R22.31 Localized swelling, mass and lump, right upper limb
CPT/HCPCS: 73130-TC-RT-FY; 99283-25

== ENCOUNTER 2023-09-16 15:51 | Inpatient (IN) | payer OTHER ==
[2023-09-16 18:26] VITALS: BMI 32.5
[2023-09-16] MEDS ORDERED: guaiFENesin 600 MG TABLET.ER (FP) PO PRN (19:47)
[2023-09-16] MEDS ORDERED: NICOTINE POLACRILEX 2 MG GUM BUC PRN (19:47)
[2023-09-16] MEDS ORDERED: BENZOCAINE/MENTHOL (CHLORASEPTIC ) LOZENGE MM PRN (19:47)
[2023-09-16] MEDS ORDERED: ACETAMINOPHEN 325 MG TABLET (FP) PO PRN (19:47)
[2023-09-16] MEDS ORDERED: MAG HYDROX/AL HYDROX/SIMETH 30 ML UNIT-DOSE CUP PO PRN (19:47)
[2023-09-16] MEDS ORDERED: ONDANSETRON *ODT* 4 MG TABLET SL PRN (19:47)
[2023-09-16] MEDS ORDERED: NICOTINE POLACRILEX 2 MG LOZENGE BC PRN (19:47)
[2023-09-16] MEDS ORDERED: LOPERAMIDE HCL 2 MG CAPSULE PO PRN (19:47)
[2023-09-16] MEDS ORDERED: DICYCLOMINE HCL 10 MG CAPSULE PO PRN (19:47)
[2023-09-16] MEDS ORDERED: BENZONATATE 200 MG CAPSULE PO PRN (19:47)
[2023-09-16] MEDS ORDERED: MAGNESIUM HYDROX 2400MG/30ML ORAL SUSPENSION 30 ML CUP PO PRN (19:47)
[2023-09-16] MEDS ORDERED: POLYETHYLENE GLYCOL (HEALTHYLAX) 3350 17 GM PACKET PO PRN (19:47)
[2023-09-16] MEDS ORDERED: IBUPROFEN 400 MG TABLET (FP) PO PRN (19:47)
[2023-09-16] MEDS ORDERED: BISMUTH SUBSALICYLATE 524 MG/30 ML PO PRN (19:47)
[2023-09-16] MEDS ORDERED: MELATONIN 5 MG TABLETS ONE (21:35)
[2023-09-16] MEDS: THIAMINE 100 MG TABLET PO SCH (21:44)
[2023-09-16] MEDS: MELATONIN 5 MG TABLETS PO SCH (21:44)
[2023-09-16] MEDS: hydrOXYzine PAMOATE 25 MG CAPSULE (FP) PO PRN (22:19)
[2023-09-16] MEDS: METHOCARBAMOL 500 MG TABLET PO PRN (22:19)
[2023-09-17] MEDS ORDERED: ALBUTEROL SO4 HFA INHALER IH PRN (09:20)
[2023-09-17] MEDS: PRENATAL VITAMINS W/ FOLIC ACID TABLET (FP) PO SCH (10:10)
[2023-09-17] MEDS: IBUPROFEN 600 MG TABLET (FP) PO PRN (10:12)
[2023-09-17] MEDS ORDERED: chlordiazePOXIDE HCL 25 MG CAPSULE PO PRN (10:43)
[2023-09-17] MEDS: amLODIPine BESYLATE 5 MG TABLET (FP) PO SCH (11:01)
[2023-09-17] MEDS: chlordiazePOXIDE HCL 25 MG CAPSULE PO SCH (11:01)
[2023-09-17 12:04] LABS: HEMATOCRIT 43.1 % (35.4-49); HEMOGLOBIN 14.1 GM/dL (11.7-16.9); MCH 30.4 pg (25.7-33.7); MCHC 32.7 g/dl (32.0-35.9); MEAN PLT VOLUME 10.5 fl (7.5-11.1); PLATELET COUNT 159 10^3/uL (134-434); RBC 4.63 M/mm3 (4.00-5.60); RDW 15.4 % (11.9-15.9); WHITE BLOOD COUNT 6.6 K/mm3 (4.0-10.0)
[2023-09-17 12:23] LABS: POTASSIUM 4.2 mmol/L (3.5-5.1)
[2023-09-17 12:33] LABS: BLOOD UREA NITROGEN 15.6 mg/dL (7-18)
[2023-09-17 12:34] LABS: CALCIUM 8.9 mg/dL (8.5-10.1)
[2023-09-17 12:35] LABS: ALBUMIN 3.6 g/dl (3.4-5.0)
[2023-09-17 12:38] LABS: BILIRUBIN,TOTAL 0.5 mg/dL (0.2-1); CREATININE 1.2 mg/dL (0.55-1.3); TOT PROT 6.4 g/dl (6.4-8.2)
[2023-09-18] MEDS: chlordiazePOXIDE HCL 25 MG CAPSULE PO SCH (06:02)
[2023-09-19] MEDS: chlordiazePOXIDE HCL 10 MG CAPSULE PO SCH (05:41)
[2023-09-19] MEDS: HYDROCORTISONE 1% TOPICAL CREAM 30 GM TUBE TP SCH (22:37)
[2023-09-19] MEDS: QUEtiapine FUMARATE 25 MG TABLET PO SCH (22:38)
[2023-09-20] MEDS: chlordiazePOXIDE HCL 10 MG CAPSULE PO SCH (05:47)
[2023-09-20 09:35] VITALS: BP 126/79; PULSE 87; RESP 18; TEMP 97.8
[2023-09-21] MEDS ORDERED: chlordiazePOXIDE HCL 10 MG CAPSULE PO ONE (05:00)
== END 2023-09-20 10:20 | disposition home or self-care (01) | DRG 774 ==
LOC: YASAS 15:51 → Y6N 20:54
PROVIDERS: ADMIT Allergy & Immunology; ATTEND Surgery
PROC: HZ2ZZZZ Detoxification Services for Substance Abuse Treatment (ICD-10-PCS; principal; 2023-09-16)
DX: F10.230 Alcohol dependence with withdrawal, uncomplicated (principal); F14.20 Cocaine dependence, uncomplicated; F16.20 Hallucinogen dependence, uncomplicated; F12.20 Cannabis dependence, uncomplicated; F17.210 Nicotine dependence, cigarettes, uncomplicated; F10.280 Alcohol dependence with alcohol-induced anxiety disorder; F10.24 Alcohol dependence with alcohol-induced mood disorder; F43.10 Post-traumatic stress disorder, unspecified; I10 Essential (primary) hypertension; J45.20 Mild intermittent asthma, uncomplicated
CPT/HCPCS: 36415; 80053; 80305; 85027; 86780; 90832-95

== ENCOUNTER 2023-09-26 10:32 | Inpatient (IN) | payer OTHER ==
[2023-09-26 10:55] VITALS: BMI 32.3
[2023-09-26] MEDS ORDERED: IBUPROFEN 600 MG TABLET (FP) PO PRN (11:30)
[2023-09-26] MEDS ORDERED: MAG HYDROX/AL HYDROX/SIMETH 30 ML UNIT-DOSE CUP PO PRN (11:30)
[2023-09-26] MEDS ORDERED: NALOXONE HCL 0.4 MG/ML VIAL IM PRN (11:30)
[2023-09-26] MEDS ORDERED: LOPERAMIDE HCL 2 MG CAPSULE PO PRN (11:30)
[2023-09-26] MEDS ORDERED: POLYETHYLENE GLYCOL (HEALTHYLAX) 3350 17 GM PACKET PO PRN (11:30)
[2023-09-26] MEDS ORDERED: ACETAMINOPHEN 325 MG TABLET (FP) PO PRN (11:30)
[2023-09-26] MEDS ORDERED: BENZONATATE 200 MG CAPSULE PO PRN (11:30)
[2023-09-26] MEDS ORDERED: NICOTINE POLACRILEX 2 MG GUM BUC PRN (11:30)
[2023-09-26] MEDS ORDERED: NALOXONE (NARCAN) HCL 4 MG/0.1 ML SPRAY NS PRN (11:30)
[2023-09-26] MEDS ORDERED: guaiFENesin 600 MG TABLET.ER (FP) PO PRN (11:30)
[2023-09-26] MEDS ORDERED: BENZOCAINE/MENTHOL (CHLORASEPTIC ) LOZENGE MM PRN (11:30)
[2023-09-26] MEDS ORDERED: IBUPROFEN 400 MG TABLET (FP) PO PRN (11:30)
[2023-09-26] MEDS ORDERED: MAGNESIUM HYDROX 2400MG/30ML ORAL SUSPENSION 30 ML CUP PO PRN (11:30)
[2023-09-26] MEDS: hydrOXYzine PAMOATE 25 MG CAPSULE (FP) PO PRN (20:18)
[2023-09-26 22:05] LABS: PH,URINE 5.5 (5.0-8.0); URINE APPEARANCE TURBID; URINE BILIRUBIN NEGATIVE (NEGATIVE); URINE COLOR YELLOW; URINE GLUCOSE (UA) NEGATIVE (NEGATIVE); URINE KETONE NEGATIVE (NEGATIVE); URINE LEUK ESTERASE NEGATIVE (NEGATIVE); URINE NITRITE NEGATIVE (NEGATIVE); URINE PROTEIN NEGATIVE (NEGATIVE)
[2023-09-26] MEDS: THIAMINE 100 MG TABLET PO SCH (22:20)
[2023-09-26] MEDS: MELATONIN 5 MG TABLETS PO SCH (22:20)
[2023-09-27] MEDS ORDERED: VITAMIN B3 PO SCH (09:15)
[2023-09-27] MEDS: PRENATAL VITAMINS W/ FOLIC ACID TABLET (FP) PO SCH (10:25)
[2023-09-27 14:28] LABS: POTASSIUM 4.4 mmol/L (3.5-5.1)
[2023-09-27 14:29] LABS: HEMATOCRIT 43.1 % (35.4-49); HEMOGLOBIN 14.6 GM/dL (11.7-16.9); MCH 30.9 pg (25.7-33.7); MCHC 33.9 g/dl (32.0-35.9); MEAN PLT VOLUME 10.3 fl (7.5-11.1); PLATELET COUNT 165 10^3/uL (134-434); RBC 4.74 M/mm3 (4.00-5.60); RDW 14.8 % (11.9-15.9); WHITE BLOOD COUNT 6.5 K/mm3 (4.0-10.0)
[2023-09-27 14:41] LABS: ALBUMIN 3.8 g/dl (3.4-5.0)
[2023-09-27 14:43] LABS: CREATININE 1.2 mg/dL (0.55-1.3)
[2023-09-27 14:44] LABS: TOT PROT 7.1 g/dl (6.4-8.2)
[2023-09-27 14:46] LABS: BLOOD UREA NITROGEN 16.5 mg/dL (7-18)
[2023-09-27 14:47] LABS: BILIRUBIN,TOTAL 0.7 mg/dL (0.2-1)
[2023-09-27] MEDS: QUEtiapine FUMARATE 25 MG TABLET PO SCH (22:20)
[2023-10-09 06:55] VITALS: RESP 18
[2023-10-10 07:47] VITALS: BP 138/75; PULSE 88; TEMP 98.6
== END 2023-10-10 09:00 | disposition home or self-care (01) | DRG 772 ==
LOC: YASAS 10:32 → Y3NR 12:45 → Y3W 09-27 14:36 → Y5N 10-01 11:18
PROVIDERS: ADMIT Allergy & Immunology; ATTEND Psychiatry & Neurology Pain Medicine
PROC: HZ42ZZZ Group Counseling for Substance Abuse Treatment, Cognitive-Behavioral (ICD-10-PCS; principal; 2023-09-26)
DX: F10.20 Alcohol dependence, uncomplicated (principal); F16.20 Hallucinogen dependence, uncomplicated; F14.20 Cocaine dependence, uncomplicated; F17.210 Nicotine dependence, cigarettes, uncomplicated; F25.9 Schizoaffective disorder, unspecified; F31.9 Bipolar disorder, unspecified; I10 Essential (primary) hypertension; J45.20 Mild intermittent asthma, uncomplicated; Z91.51 Personal history of suicidal behavior; Z56.0 Unemployment, unspecified; Z59.00 Homelessness unspecified
CPT/HCPCS: 36415; 80053; 80305; 81003; 85027; 86780; 87811; 93005; 93010

== ENCOUNTER 2024-02-03 09:07 | Inpatient (IN) | payer OTHER ==
[2024-02-03 09:48] VITALS: BMI 33.6
[2024-02-03] MEDS ORDERED: MAG HYDROX/AL HYDROX/SIMETH 30 ML UNIT-DOSE CUP PO PRN (10:17)
[2024-02-03] MEDS ORDERED: guaiFENesin 600 MG TABLET.ER (FP) PO PRN (10:17)
[2024-02-03] MEDS ORDERED: MAGNESIUM HYDROX 2400MG/30ML ORAL SUSPENSION 30 ML CUP PO PRN (10:17)
[2024-02-03] MEDS ORDERED: BISMUTH SUBSALICYLATE 262 MG/15 ML BTL PO PRN (10:17)
[2024-02-03] MEDS ORDERED: ACETAMINOPHEN 325 MG TABLET (FP) PO PRN (10:17)
[2024-02-03] MEDS ORDERED: POLYETHYLENE GLYCOL (HEALTHYLAX) 3350 17 GM PACKET PO PRN (10:17)
[2024-02-03] MEDS ORDERED: BENZOCAINE/MENTHOL (CHLORASEPTIC ) LOZENGE MM PRN (10:17)
[2024-02-03] MEDS ORDERED: ONDANSETRON *ODT* 4 MG TABLET SL PRN (10:17)
[2024-02-03] MEDS ORDERED: DICYCLOMINE HCL 10 MG CAPSULE PO PRN (10:17)
[2024-02-03] MEDS ORDERED: NALOXONE (NARCAN) HCL 4 MG/0.1 ML SPRAY NS PRN (10:17)
[2024-02-03] MEDS ORDERED: LOPERAMIDE HCL 2 MG CAPSULE PO PRN (10:17)
[2024-02-03] MEDS ORDERED: IBUPROFEN 400 MG TABLET (FP) PO PRN (10:17)
[2024-02-03] MEDS ORDERED: BENZONATATE 200 MG CAPSULE PO PRN (10:17)
[2024-02-03] MEDS ORDERED: IBUPROFEN 600 MG TABLET (FP) PO PRN (10:17)
[2024-02-03] MEDS ORDERED: propRANOLol HCL 10 MG TABLET ONE (11:11)
[2024-02-03] MEDS: hydrOXYzine PAMOATE 25 MG CAPSULE (FP) PO PRN (18:50)
[2024-02-03] MEDS: METHOCARBAMOL 500 MG TABLET PO PRN (18:51)
[2024-02-03] MEDS: MELATONIN 5 MG TABLETS PO SCH (22:54)
[2024-02-03] MEDS: QUEtiapine FUMARATE 25 MG TABLET PO SCH (22:54)
[2024-02-03] MEDS: THIAMINE 100 MG TABLET PO SCH (22:54)
[2024-02-04] MEDS ORDERED: diazePAM 5 MG TABLET PO PRN (09:00)
[2024-02-04 09:02] VITALS: RESP 18
[2024-02-04] MEDS: PRENATAL VITAMINS W/ FOLIC ACID TABLET (FP) PO SCH (10:09)
[2024-02-04] MEDS: diazePAM 5 MG TABLET PO SCH (10:09)
[2024-02-04 11:24] LABS: POTASSIUM 4.6 mmol/L (3.5-5.1)
[2024-02-04 11:30] LABS: ALBUMIN 4.9 g/dl (3.4-5.0); CALCIUM 10.2 mg/dL (8.5-10.1)
[2024-02-04 11:31] LABS: BLOOD UREA NITROGEN 22.2 mg/dL (7-18); HEMATOCRIT 49.3 % (35.4-49); MCHC 32.5 g/dl (32.0-35.9); MEAN CELL VOLUME 92.3 fl (80-96); MEAN PLT VOLUME 11.2 fl (7.5-11.1); PLATELET COUNT 209 10^3/uL (134-434); RBC 5.34 M/mm3 (4.00-5.60); WHITE BLOOD COUNT 13.7 K/mm3 (4.0-10.0)
[2024-02-04 11:33] LABS: BILIRUBIN,TOTAL 0.9 mg/dL (0.2-1); TOT PROT 8.5 g/dl (6.4-8.2)
[2024-02-04 11:34] LABS: CREATININE 1.9 mg/dL (0.55-1.3)
[2024-02-04 17:18] VITALS: BP 125/85; PULSE 78; TEMP 98
[2024-02-06] MEDS ORDERED: diazePAM 5 MG TABLET PO SCH (06:00)
[2024-02-07] MEDS ORDERED: diazePAM 5 MG TABLET PO SCH (06:00)
[2024-02-08] MEDS ORDERED: diazePAM 5 MG TABLET PO ONE (06:00)
== END 2024-02-05 09:24 | disposition left against medical advice (07) | DRG 770 ==
LOC: YASAS 09:07 → Y6N 10:24
PROVIDERS: ADMIT Allergy & Immunology; ATTEND Surgery
PROC: HZ2ZZZZ Detoxification Services for Substance Abuse Treatment (ICD-10-PCS; principal; 2024-02-03)
DX: F10.230 Alcohol dependence with withdrawal, uncomplicated (principal); F16.20 Hallucinogen dependence, uncomplicated; F17.210 Nicotine dependence, cigarettes, uncomplicated; F31.9 Bipolar disorder, unspecified; F19.282 Other psychoactive substance dependence with psychoactive substance-induced sleep disorder; F19.280 Other psychoactive substance dependence with psychoactive substance-induced anxiety disorder; F19.24 Other psychoactive substance dependence with psychoactive substance-induced mood disorder; F43.10 Post-traumatic stress disorder, unspecified; I10 Essential (primary) hypertension; J45.20 Mild intermittent asthma, uncomplicated
CPT/HCPCS: 36415; 80053; 80305; 80307; 85027; 86780; 90832; 93005; 93010

== ENCOUNTER 2024-02-20 03:37 | Inpatient (IN) | payer OTHER ==
[2024-02-20 03:39] VITALS: BMI 30.9
[2024-02-20] MEDS ORDERED: ONDANSETRON *ODT* 4 MG TABLET SL PRN (03:54)
[2024-02-20] MEDS ORDERED: BENZONATATE 200 MG CAPSULE PO PRN (03:54)
[2024-02-20] MEDS ORDERED: guaiFENesin 600 MG TABLET.ER (FP) PO PRN (03:54)
[2024-02-20] MEDS ORDERED: MAG HYDROX/AL HYDROX/SIMETH 30 ML UNIT-DOSE CUP PO PRN (03:54)
[2024-02-20] MEDS ORDERED: POLYETHYLENE GLYCOL (HEALTHYLAX) 3350 17 GM PACKET PO PRN (03:54)
[2024-02-20] MEDS ORDERED: NICOTINE POLACRILEX 2 MG GUM BUC PRN (03:54)
[2024-02-20] MEDS ORDERED: NALOXONE (NARCAN) HCL 4 MG/0.1 ML SPRAY NS PRN (03:54)
[2024-02-20] MEDS ORDERED: LOPERAMIDE HCL 2 MG CAPSULE PO PRN (03:54)
[2024-02-20] MEDS ORDERED: METHOCARBAMOL 500 MG TABLET PO PRN (03:54)
[2024-02-20] MEDS ORDERED: MAGNESIUM HYDROX 2400MG/30ML ORAL SUSPENSION 30 ML CUP PO PRN (03:54)
[2024-02-20] MEDS ORDERED: DICYCLOMINE HCL 10 MG CAPSULE PO PRN (03:54)
[2024-02-20] MEDS ORDERED: IBUPROFEN 400 MG TABLET (FP) PO PRN (03:54)
[2024-02-20] MEDS ORDERED: BISMUTH SUBSALICYLATE 524 MG/30 ML PO PRN (03:54)
[2024-02-20] MEDS ORDERED: NICOTINE POLACRILEX 2 MG LOZENGE BC PRN (03:54)
[2024-02-20] MEDS ORDERED: BENZOCAINE/MENTHOL (CHLORASEPTIC ) LOZENGE MM PRN (03:54)
[2024-02-20] MEDS ORDERED: hydrOXYzine PAMOATE 25 MG CAPSULE (FP) PO PRN (03:54)
[2024-02-20] MEDS ORDERED: chlordiazePOXIDE HCL 25 MG CAPSULE PO PRN (03:56)
[2024-02-20] MEDS: propRANOLol HCL 10 MG TABLET PO ONE (05:49)
[2024-02-20] MEDS: chlordiazePOXIDE HCL 25 MG CAPSULE PO SCH (05:49)
[2024-02-20] MEDS ORDERED: chlordiazePOXIDE HCL 25 MG CAPSULE ONE (10:17)
[2024-02-20] MEDS ORDERED: PRENATAL VITAMINS W/ FOLIC ACID TABLET (FP) PO ONE (10:18)
[2024-02-20] MEDS: PRENATAL VITAMINS W/ FOLIC ACID TABLET (FP) PO SCH (10:18)
[2024-02-20] MEDS: ACETAMINOPHEN 325 MG TABLET (FP) PO PRN (17:48)
[2024-02-20] MEDS: QUEtiapine FUMARATE 50 MG TABLET PO SCH (22:22)
[2024-02-20] MEDS: MELATONIN 5 MG TABLETS PO SCH (22:22)
[2024-02-20] MEDS: THIAMINE 100 MG TABLET PO SCH (22:22)
[2024-02-21] MEDS: chlordiazePOXIDE HCL 25 MG CAPSULE PO SCH (06:20)
[2024-02-21 17:09] VITALS: RESP 18
[2024-02-21] MEDS: IBUPROFEN 600 MG TABLET (FP) PO PRN (22:06)
[2024-02-22] MEDS ORDERED: chlordiazePOXIDE HCL 10 MG CAPSULE PO PRN
[2024-02-22] MEDS: chlordiazePOXIDE HCL 10 MG CAPSULE PO SCH (06:15)
[2024-02-22] MEDS: NALOXONE (NYS OPIOID OVERDOSE PROGRAM) 4 MG/0.1 ML SPRAY NS SCH (13:40)
[2024-02-22 13:51] VITALS: BP 146/74; PULSE 91; TEMP 97.6
[2024-02-23] MEDS ORDERED: chlordiazePOXIDE HCL 10 MG CAPSULE PO SCH (05:00)
[2024-02-24] MEDS ORDERED: chlordiazePOXIDE HCL 10 MG CAPSULE PO ONE (05:00)
== END 2024-02-22 15:20 | disposition home or self-care (01) | DRG 775 ==
LOC: YASAS 03:37 → Y3N 11:10
PROVIDERS: ADMIT Allergy & Immunology; ATTEND Surgery
PROC: HZ2ZZZZ Detoxification Services for Substance Abuse Treatment (ICD-10-PCS; principal; 2024-02-20)
DX: F10.230 Alcohol dependence with withdrawal, uncomplicated (principal); F16.20 Hallucinogen dependence, uncomplicated; F17.210 Nicotine dependence, cigarettes, uncomplicated; F31.9 Bipolar disorder, unspecified; F19.24 Other psychoactive substance dependence with psychoactive substance-induced mood disorder; F41.9 Anxiety disorder, unspecified; I10 Essential (primary) hypertension; J45.909 Unspecified asthma, uncomplicated
CPT/HCPCS: 93005; 93010; 99282-25

== ENCOUNTER 2024-02-25 17:11 | Inpatient (IN) | payer OTHER ==
[2024-02-25 17:33] VITALS: BMI 31.1
[2024-02-25] MEDS ORDERED: MAG HYDROX/AL HYDROX/SIMETH 30 ML UNIT-DOSE CUP PO PRN (18:43)
[2024-02-25] MEDS ORDERED: NALOXONE (NARCAN) HCL 4 MG/0.1 ML SPRAY NS PRN (18:43)
[2024-02-25] MEDS ORDERED: hydrOXYzine PAMOATE 25 MG CAPSULE (FP) PO PRN (18:43)
[2024-02-25] MEDS ORDERED: ACETAMINOPHEN 325 MG TABLET (FP) PO PRN (18:43)
[2024-02-25] MEDS ORDERED: MAGNESIUM HYDROX 2400MG/30ML ORAL SUSPENSION 30 ML CUP PO PRN (18:43)
[2024-02-25] MEDS ORDERED: guaiFENesin 600 MG TABLET.ER (FP) PO PRN (18:43)
[2024-02-25] MEDS ORDERED: POLYETHYLENE GLYCOL (HEALTHYLAX) 3350 17 GM PACKET PO PRN (18:43)
[2024-02-25] MEDS ORDERED: LOPERAMIDE HCL 2 MG CAPSULE PO PRN (18:43)
[2024-02-25] MEDS ORDERED: IBUPROFEN 400 MG TABLET (FP) PO PRN (18:43)
[2024-02-25] MEDS: propRANOLol HCL 10 MG TABLET PO ONE (19:55)
[2024-02-25] MEDS: RALTEGRAVIR POTASSIUM 400 MG TAB PO SCH (21:31)
[2024-02-25] MEDS: THIAMINE 100 MG TABLET PO SCH (21:31)
[2024-02-25] MEDS: MELATONIN 5 MG TABLETS PO SCH (21:32)
[2024-02-25] MEDS: QUEtiapine FUMARATE 50 MG TABLET PO ONE (21:32)
[2024-02-25 23:38] LABS: PH,URINE 5.5 (5.0-8.0); URINE APPEARANCE CLEAR; URINE BILIRUBIN 2+ (NEGATIVE); URINE COLOR DK YELLOW; URINE GLUCOSE (UA) NEGATIVE (NEGATIVE); URINE KETONE 3+ (NEGATIVE); URINE LEUK ESTERASE NEGATIVE (NEGATIVE); URINE NITRITE NEGATIVE (NEGATIVE); URINE PROTEIN TRACE (NEGATIVE)
[2024-02-26] MEDS: BENZOCAINE/MENTHOL (CHLORASEPTIC ) LOZENGE MM PRN (06:11)
[2024-02-26] MEDS: BENZONATATE 200 MG CAPSULE PO PRN (06:11)
[2024-02-26] MEDS: PRENATAL VITAMINS W/ FOLIC ACID TABLET (FP) PO SCH (10:12)
[2024-02-26] MEDS: EMTRICITABINE 200MG/TENOFOVIR 300MG PO SCH (10:12)
[2024-02-26 10:47] LABS: HEMATOCRIT 40.9 % (35.4-49); HEMOGLOBIN 13.7 GM/dL (11.7-16.9); MCH 30.5 pg (25.7-33.7); MCHC 33.4 g/dl (32.0-35.9); MEAN CELL VOLUME 91.4 fl (80-96); MEAN PLT VOLUME 10.2 fl (7.5-11.1); PLATELET COUNT 194 10^3/uL (134-434); RBC 4.48 M/mm3 (4.00-5.60); RDW 15.3 % (11.9-15.9); WHITE BLOOD COUNT 6.3 K/mm3 (4.0-10.0)
[2024-02-26 11:12] LABS: SYPHILIS W/ RPR CONF NON-REACTIVE (NONREACTIVE)
[2024-02-26 11:48] LABS: CHLORIDE 104 mmol/L (98-107); POTASSIUM 3.9 mmol/L (3.5-5.1); SODIUM 140 mmol/L (136-145)
[2024-02-26 11:51] LABS: ALBUMIN 3.7 g/dl (3.4-5.0); ANION GAP 6 mmol/L (4-13); BLOOD UREA NITROGEN 15.8 mg/dL (7-18); CO2 30 mmol/L (21-32); GLUCOSE,RANDOM 114 mg/dL (74-106)
[2024-02-26 11:54] LABS: CREATININE 1.2 mg/dL (0.55-1.3); SGOT/AST 56 U/L (15-37); SGPT/ALT 37 U/L (13-61)
[2024-02-26 11:55] LABS: BILIRUBIN,TOTAL 0.6 mg/dL (0.2-1); TOT PROT 6.5 g/dl (6.4-8.2)
[2024-02-26 11:57] LABS: ALK PHOS 59 U/L (45-117)
[2024-02-26] MEDS: QUEtiapine FUMARATE 50 MG TABLET PO SCH (22:49)
[2024-02-27 08:50] VITALS: TEMP 97.7
[2024-02-27 10:21] VITALS: BP 138/92; PULSE 104; RESP 16
[2024-02-27] MEDS: IBUPROFEN 600 MG TABLET (FP) PO PRN (11:15)
[2024-02-27] MEDS: NALOXONE (NYS OPIOID OVERDOSE PROGRAM) 4 MG/0.1 ML SPRAY NS SCH (14:30)
[2024-02-27] MEDS ORDERED: NALOXONE (NYS OPIOID OVERDOSE PROGRAM) 4 MG/0.1 ML SPRAY NS SCH (15:00)
== END 2024-02-27 14:35 | disposition home or self-care (01) | DRG 772 ==
LOC: YASAS 17:11 → Y3NR 18:37 → Y3E 02-27 12:17
PROVIDERS: ADMIT Psychiatry & Neurology Pain Medicine; ATTEND Psychiatry & Neurology Pain Medicine
PROC: HZ42ZZZ Group Counseling for Substance Abuse Treatment, Cognitive-Behavioral (ICD-10-PCS; principal; 2024-02-25)
DX: F10.20 Alcohol dependence, uncomplicated (principal); F14.10 Cocaine abuse, uncomplicated; F16.20 Hallucinogen dependence, uncomplicated; F17.210 Nicotine dependence, cigarettes, uncomplicated; F31.9 Bipolar disorder, unspecified; F20.9 Schizophrenia, unspecified; F19.282 Other psychoactive substance dependence with psychoactive substance-induced sleep disorder; F19.24 Other psychoactive substance dependence with psychoactive substance-induced mood disorder; F43.10 Post-traumatic stress disorder, unspecified; I10 Essential (primary) hypertension
CPT/HCPCS: 36415; 80053; 80307; 81003; 85027; 86780; 86803; 90832; 90853; 93005; 93010